=== PATIENT | female | born 1950 | race Caucasian/White ===

== ENCOUNTER 2016-06-26 11:23 | Emergency (ER) | payer MEDICARE, OTHER ==
[~2016-06-26 11:23] MED LIST: ATROVENT INH S2.5 ML INH; COMBIVENT0.074 GM/I INH; ECOTRIN81 MG PO; ELIQUIS 2.5 MG2.5 MG PO; ENSURE ORIGINA237 ML PO; ENSURE113 GM PO; LASIX20 MG PO; LEVAQUIN750 MG PO; LOPRESSOR 25 MG25 MG PO; LORTAB 5-325 M1 EACH PO; LYRICA100 MG PO; NORCO 5-325 TA1 EACH PO; OXYGEN INH; PERCOCET 10-321 EACH PO; PLAVIX75 MG PO; PRILOSEC OTC20 MG PO; PROVENTIL HFA 61 INH INH; SENOKOT-S TABL1 EACH PO; SINGULAIR10 MG PO; SPIRIVA18 MCG INH; SYMBICORT 16010.2 GM INH; VENTOLIN HFA 66.7 GM INH; ZOLOFT50 MG PO
[2016-06-26 12:24] LABS: HEMOGLOBIN 11.6 gm/dl (12.3-15.3); RED BLOOD COUNT 4.17 M/UL (4.00-5.10); WHITE BLOOD COUNT 11.3 K/UL (4.5-11.0)
[2016-06-26 12:46] LABS: BUN/CREATININE RATIO 13 (0-10)
[2016-07-26] MEDS ORDERED: NORCO 10-325 T1 EACH PO (07:34)
[2016-07-26] MEDS ORDERED: PRILOSEC OTC20 MG PO (07:35)
[2016-07-26] MEDS ORDERED: LYRICA100 MG PO (07:35)
[2016-07-26] MEDS ORDERED: PLAVIX 75 MG TA75 MG PO (07:36)
[2016-07-26] MEDS ORDERED: SYMBICORT 160-1 INHA INH (07:36)
[2016-07-26] MEDS ORDERED: VIT B-12 PO (07:37)
[2016-07-26] MEDS ORDERED: VIT D PO (07:37)
[2016-07-26] MEDS ORDERED: SPIRIVA18 MCG INH (07:37)
[2016-07-26] MEDS ORDERED: CALCIUM PO (07:38)
[2016-10-30] MEDS ORDERED: LOPRESSOR 25 MG25 MG PO (22:53)
[2016-10-30] MEDS ORDERED: SERTRALINE HCL100 MG PO (22:54)
[2016-10-30] MEDS ORDERED: SINGULAIR10 MG PO (22:54)
[2016-10-30] MEDS ORDERED: POTASSIUM CHLO10 MEQ PO (22:55)
[2016-10-30] MEDS ORDERED: FUROSEMIDE20 MG PO (22:55)
[2016-11-01] MEDS ORDERED: ENSURE LIQUID237 ML PO (12:44)
[2016-11-01] MEDS ORDERED: LEVAQUIN500 MG PO (12:44)
[2016-11-01] MEDS ORDERED: MYCOSTATIN100000 UTS PO (12:45)
[2016-11-01] MEDS ORDERED: SPIRIVA HANDIH18 MCG INH (12:46)
[2016-11-01] MEDS ORDERED: MEDROL TAB 4 MG4 MG PO (12:46)
== END 2016-06-26 18:15 | disposition home or self-care (01) ==
LOC: ER1 11:23
PROVIDERS: Student in an Organized Health Care Education/Training Program
DX: K57.92 Diverticulitis of intestine, part unspecified, without perforation or abscess without bleeding (principal); Z88.1 Allergy status to other antibiotic agents; Z88.5 Allergy status to narcotic agent
CPT/HCPCS: 36415; 80053; 81001; 82150; 83690; 84484; 85025; 85610; 87086; 96374; 96375; 99284; J0696; J7050; Q9962

== ENCOUNTER → 2016-07-26 | Day surgery (SDC) | payer MEDICARE ==
[~2016-07-26] VITALS: Ht 149.9 cm; Wt 49.9 kg
[~2016-07-26] MED LIST changes: +CALCIUM PO; +ENSURE LIQUID237 ML PO; +FUROSEMIDE20 MG PO; +LEVAQUIN500 MG PO; +MEDROL TAB 4 MG4 MG PO; +MYCOSTATIN100000 UTS PO; +NORCO 10-325 T1 EACH PO; +PLAVIX 75 MG TA75 MG PO; +POTASSIUM CHLO10 MEQ PO; +SERTRALINE HCL100 MG PO; +SPIRIVA HANDIH18 MCG INH; +SYMBICORT 160-1 INHA INH; +VIT B-12 PO; +VIT D PO
== END | disposition home or self-care (01) ==
LOC: OR 06:39
PROVIDERS: Internal Medicine Gastroenterology
PROC: 0DBN8ZZ Excision of Sigmoid Colon, Via Natural or Artificial Opening Endoscopic (ICD-10-PCS; 2016-07-26)
PROC: 0DBK8ZZ Excision of Ascending Colon, Via Natural or Artificial Opening Endoscopic (ICD-10-PCS; 2016-07-26)
PROC: 0DBH8ZZ Excision of Cecum, Via Natural or Artificial Opening Endoscopic (ICD-10-PCS; principal; 2016-07-26 07:30)
DX: Z12.11 Encounter for screening for malignant neoplasm of colon (principal); D12.0 Benign neoplasm of cecum; D12.2 Benign neoplasm of ascending colon; D12.5 Benign neoplasm of sigmoid colon; K57.30 Diverticulosis of large intestine without perforation or abscess without bleeding; K64.0 First degree hemorrhoids; I10 Essential (primary) hypertension; J44.9 Chronic obstructive pulmonary disease, unspecified; K21.9 Gastro-esophageal reflux disease without esophagitis; G89.29 Other chronic pain; M19.90 Unspecified osteoarthritis, unspecified site; F41.9 Anxiety disorder, unspecified; F32.9 Major depressive disorder, single episode, unspecified; F17.290 Nicotine dependence, other tobacco product, uncomplicated; Z83.3 Family history of diabetes mellitus; Z88.2 Allergy status to sulfonamides; Z79.02 Long term (current) use of antithrombotics/antiplatelets; Z79.899 Other long term (current) drug therapy; Z90.49 Acquired absence of other specified parts of digestive tract; Z90.710 Acquired absence of both cervix and uterus; Z98.890 Other specified postprocedural states
CPT/HCPCS: J7030

== ENCOUNTER 2020-05-14 20:43 | Emergency (ER) | payer MEDICARE, SELFPAY ==
[~2020-05-14 20:43] MED LIST changes: +ALPRAZOLAM0.25 MG PO; +ALPRAZOLAM0.5 MG PO; +AMLODIPINE BESY10 MG PO; +AMLODIPINE BESYL5 MG PO; +ASPIRIN EC81 MG PO; +ATORVASTATIN CA40 MG PO; +BROVANA15 MCG/2 M INH; +CLARITIN10 MG PO; +IPRAT-ALBUT 0.5-3 ML INH; +IPRATROPIU0.2 MG/1 M INH; +LEVOFLOXACIN500 MG PO; +MAGIC MOUTHWASH PO; +MEDROL4 MG PO; +METOPROLOL TART25 MG PO; +PREDNISONE 20 M20 MG GT; +PREDNISONE20 MG PO; +PRINIVIL5 MG PO; -SERTRALINE HCL100 MG PO; +ZITHROMAX250 MG PO; +ZOLOFT100 MG PO; +[UNRECOGNIZED DRUG - OTHER] IV
[2020-05-14 22:10] LABS: HEMOGLOBIN 9.7 gm/dl (12.3-15.3); RED BLOOD COUNT 3.48 M/UL (4.00-5.10); WHITE BLOOD COUNT 7.5 K/UL (4.5-11.0)
[2020-05-14 22:27] LABS: BUN/CREATININE RATIO 28 (0-10)
[2020-05-15] MEDS ORDERED: ZITHROMAX250 MG PO (01:47)
[2020-05-15 17:30] LABS: ACINETOBACTER BAUMANNII Not Detected (Negative); CANDIDA ALBICANS Not Detected (Negative); CANDIDA KRUSEI Not Detected (Negative); CANDIDA TROPICALIS Not Detected (Negative); ENTEROCOCCUS Not Detected (Negative); ESCHERICHIA COLI Not Detected (Negative); HAEMOPHILUS INFLUENZAE Not Detected (Negative); KLEBSIELLA OXYTOCA Not Detected (Negative); KLEBSIELLA PNEUMONIAE Not Detected (Negative); KPC-CARBAPENEM-RESISTANCE GENE Not Detected (Negative); PROTEUS Not Detected (Negative); PSEUDOMONAS AERUGINOSA Not Detected (Negative); SERRATIA MARCESANS Not Detected (Negative); STAPHYLOCOCCUS AUREUS Not Detected (Negative); STREP AGALACTIAE (GROUP B) Not Detected (Negative); STREP PYOGENES (GROUP A) Not Detected (Negative); STREPTOCOCCUS Not Detected (Negative); vanA/B (VANCOMYCIN RESIST GENE Not Detected (Negative)
[2020-05-15 18:49] LABS: mecA (METHICILLIN RESIST GENE DETECTED (Negative)
[2020-05-15 18:51] LABS: STAPHYLOCOCCUS DETECTED (Negative)
== END 2020-05-15 02:15 | disposition home or self-care (01) ==
LOC: ER1 20:43
PROVIDERS: Emergency Medicine
DX: J44.0 Chronic obstructive pulmonary disease with (acute) lower respiratory infection (principal); J18.9 Pneumonia, unspecified organism; J44.1 Chronic obstructive pulmonary disease with (acute) exacerbation; I11.9 Hypertensive heart disease without heart failure
CPT/HCPCS: 70450; 71045; 72125; 80053; 81001; 83605; 83690; 84484; 85025; 85610; 85730; 87040; 87077; 87150; 87186; 93005; 94640; 94664; 96374; 99285; J2930

== ENCOUNTER 2020-06-01 22:59 | Inpatient (IN) | payer MEDICARE, OTHER ==
[~2020-06-01] VITALS: Ht 144.8 cm; Wt 36.3 kg
[2020-06-01 23:35] LABS: HEMOGLOBIN 9.2 gm/dl (12.3-15.3); RED BLOOD COUNT 3.3 M/UL (4.00-5.10); WHITE BLOOD COUNT 12.8 K/UL (4.5-11.0)
[2020-06-01 23:54] LABS: BUN/CREATININE RATIO 32 (0-10)
[2020-06-02] MEDS ORDERED: METOPROLOL TART25 MG PO (05:01)
[2020-06-02] MEDS ORDERED: HYDROCHLOROTHIA25 MG PO (05:02)
[2020-06-02] MEDS ORDERED: ZOFRAN4 MG PO (05:02)
[2020-06-03 02:27] LABS: HEMOGLOBIN 8.1 gm/dl (12.3-15.3)
[2020-06-03 02:31] LABS: RED BLOOD COUNT 2.88 M/UL (4.00-5.10); WHITE BLOOD COUNT 5.3 K/UL (4.5-11.0)
[2020-06-03 02:48] LABS: BUN/CREATININE RATIO 49 (0-10)
[2020-06-03] MEDS ORDERED: KLONOPIN0.5 MG PO (13:58)
[2020-06-03] MEDS ORDERED: THERAGRAN M TAB1 EA PO (13:58)
== END 2020-06-03 17:45 | disposition home health service (06) | DRG 189 ==
LOC: ER1 22:59 → CDU 06-02 02:00 → CCU 06-02 02:00 → PROG CARE 06-02 12:48
PROVIDERS: Physician Assistant; ADMIT Internal Medicine Infectious Disease
PROC: 5A09357 Assistance with Respiratory Ventilation, Less than 24 Consecutive Hours, Continuous Positive Airway Pressure (ICD-10-PCS; principal; 2020-06-02)
DX: J96.21 Acute and chronic respiratory failure with hypoxia (principal); J44.1 Chronic obstructive pulmonary disease with (acute) exacerbation; R64 Cachexia; Z68.1 Body mass index [BMI] 19.9 or less, adult; E44.0 Moderate protein-calorie malnutrition; Z20.822 Contact with and (suspected) exposure to COVID-19; Z66 Do not resuscitate; I10 Essential (primary) hypertension; E78.5 Hyperlipidemia, unspecified; M40.209 Unspecified kyphosis, site unspecified; M81.0 Age-related osteoporosis without current pathological fracture; G89.4 Chronic pain syndrome; R00.0 Tachycardia, unspecified; M54.9 Dorsalgia, unspecified; F41.9 Anxiety disorder, unspecified; I73.1 Thromboangiitis obliterans [Buerger's disease]; J96.22 Acute and chronic respiratory failure with hypercapnia; I27.20 Pulmonary hypertension, unspecified; Z89.431 Acquired absence of right foot; Z90.49 Acquired absence of other specified parts of digestive tract; Z90.710 Acquired absence of both cervix and uterus; Z99.81 Dependence on supplemental oxygen; Z86.010 Personal history of colon polyps; Z88.1 Allergy status to other antibiotic agents; Z88.5 Allergy status to narcotic agent; Z88.2 Allergy status to sulfonamides; Z88.8 Allergy status to other drugs, medicaments and biological substances; Z79.899 Other long term (current) drug therapy; Z87.891 Personal history of nicotine dependence; Z83.3 Family history of diabetes mellitus; Z82.49 Family history of ischemic heart disease and other diseases of the circulatory system
CPT/HCPCS: 0240U; 36415; 36600; 71045; 80053; 81001; 82550; 82553; 82803; 83605; 83874; 83880; 84484; 85025; 87040; 87086; 93005; 94640; 94660; 94664; 94760; 96374; 97161; 99285; J1650; J2920; J2930

== ENCOUNTER 2020-07-04 18:56 | Inpatient (IN) | payer MEDICARE, SELFPAY ==
[~2020-07-04] VITALS: Ht 144.8 cm; Wt 36.3 kg
[~2020-07-04 18:56] MED LIST changes: +HYDROCHLOROTHIA25 MG PO; +KLONOPIN0.5 MG PO; +THERAGRAN M TAB1 EA PO; +ZOFRAN4 MG PO
[2020-07-04 20:01] LABS: HEMOGLOBIN 9.5 gm/dl (12.3-15.3); RED BLOOD COUNT 3.46 M/UL (4.00-5.10); WHITE BLOOD COUNT 6.7 K/UL (4.5-11.0)
[2020-07-04 20:23] LABS: BUN/CREATININE RATIO 32 (0-10)
[2020-07-05 06:59] LABS: HEMOGLOBIN 9.6 gm/dl (12.3-15.3); RED BLOOD COUNT 3.41 M/UL (4.00-5.10)
[2020-07-05 07:23] LABS: BUN/CREATININE RATIO 36 (0-10)
[2020-07-06] MEDS ORDERED: DOXYCYCLINE HY100 M2 PO (10:00)
[2020-07-06] MEDS ORDERED: PREDNISONE10 MG PO (10:00)
== END 2020-07-06 14:52 | disposition home or self-care (01) | DRG 189 ==
LOC: ER1 18:56 → CDU 22:10 → PROG CARE 07-05 06:59
PROVIDERS: Physician Assistant; ADMIT Internal Medicine
PROC: 5A09357 Assistance with Respiratory Ventilation, Less than 24 Consecutive Hours, Continuous Positive Airway Pressure (ICD-10-PCS; principal; 2020-07-04)
DX: J96.21 Acute and chronic respiratory failure with hypoxia (principal); E43 Unspecified severe protein-calorie malnutrition; E87.3 Alkalosis; E87.1 Hypo-osmolality and hyponatremia; F11.20 Opioid dependence, uncomplicated; F13.20 Sedative, hypnotic or anxiolytic dependence, uncomplicated; G93.40 Encephalopathy, unspecified; R64 Cachexia; Z68.1 Body mass index [BMI] 19.9 or less, adult; Z20.822 Contact with and (suspected) exposure to COVID-19; Z66 Do not resuscitate; J43.9 Emphysema, unspecified; D64.9 Anemia, unspecified; J96.22 Acute and chronic respiratory failure with hypercapnia; G89.29 Other chronic pain; I11.9 Hypertensive heart disease without heart failure; K57.90 Diverticulosis of intestine, part unspecified, without perforation or abscess without bleeding; I27.21 Secondary pulmonary arterial hypertension; M81.0 Age-related osteoporosis without current pathological fracture; I44.7 Left bundle-branch block, unspecified; F41.1 Generalized anxiety disorder; Z91.14 Patient's other noncompliance with medication regimen; Z89.431 Acquired absence of right foot; Z90.49 Acquired absence of other specified parts of digestive tract; Z90.710 Acquired absence of both cervix and uterus; Z82.49 Family history of ischemic heart disease and other diseases of the circulatory system
CPT/HCPCS: 0240U; 36415; 36600; 71045; 80053; 81001; 82550; 82553; 82803; 83735; 83874; 84100; 84439; 84443; 84484; 85025; 93005; 94640; 94660; 94664; 94760; 96365; 96375; 99285; C9113; G0378; J1650; J1956; J2920; J2930

== ENCOUNTER 2020-09-03 18:41 | Observation (INO) | payer MEDICARE ==
[~2020-09-03] VITALS: Ht 139.7 cm; Wt 46.7 kg
[~2020-09-03 18:41] MED LIST changes: +DOXYCYCLINE HY100 M2 PO; +PREDNISONE10 MG PO
[2020-09-03 19:53] LABS: HEMOGLOBIN 9.6 gm/dl (12.3-15.3); RED BLOOD COUNT 3.53 M/UL (4.00-5.10); WHITE BLOOD COUNT 7.4 K/UL (4.5-11.0)
[2020-09-03 20:19] LABS: BUN/CREATININE RATIO 28 (0-10)
[2020-09-04] MEDS ORDERED: FLONASE 0.05% N16 GM (02:03)
[2020-09-04 08:17] LABS: HEMOGLOBIN 8.9 gm/dl (12.3-15.3); RED BLOOD COUNT 3.22 M/UL (4.00-5.10); WHITE BLOOD COUNT 6.1 K/UL (4.5-11.0)
[2020-09-04 08:42] LABS: BUN/CREATININE RATIO 28 (0-10)
[2020-09-04] MEDS ORDERED: MEDROL DOSEPAK 24 MG PO (12:21)
[2020-09-04] MEDS ORDERED: AZITHROMYCIN250 MG PO (12:21)
== END 2020-09-04 13:18 | disposition home or self-care (01) ==
LOC: ER1 18:41 → PROG CARE 22:40 → CDU 22:40 → PROG CARE 22:40
PROVIDERS: Emergency Medicine; ADMIT Internal Medicine
DX: J44.1 Chronic obstructive pulmonary disease with (acute) exacerbation (principal); R42 Dizziness and giddiness; J96.21 Acute and chronic respiratory failure with hypoxia; J96.22 Acute and chronic respiratory failure with hypercapnia; M81.0 Age-related osteoporosis without current pathological fracture; F41.9 Anxiety disorder, unspecified; I10 Essential (primary) hypertension; I44.7 Left bundle-branch block, unspecified; I27.20 Pulmonary hypertension, unspecified; J96.20 Acute and chronic respiratory failure, unspecified whether with hypoxia or hypercapnia; Z20.822 Contact with and (suspected) exposure to COVID-19; E87.1 Hypo-osmolality and hyponatremia; Z88.2 Allergy status to sulfonamides; Z88.8 Allergy status to other drugs, medicaments and biological substances; Z90.49 Acquired absence of other specified parts of digestive tract; Z88.5 Allergy status to narcotic agent; Z90.710 Acquired absence of both cervix and uterus; Z98.890 Other specified postprocedural states; Z87.891 Personal history of nicotine dependence; W19.XXXA Unspecified fall, initial encounter
CPT/HCPCS: 0240U; 36415; 36600; 70450; 71045; 73522; 73552; 73564; 73590; 73610; 80048; 80053; 82550; 82553; 82803; 83874; 83880; 84484; 85025; 90471; 90715; 93005; 94640; 94660; 94664; 94760; 96374; 99285; G0378; J2920; J2930

== ENCOUNTER 2020-09-25 02:21 | Emergency (ER) | payer MEDICARE ==
[~2020-09-25 02:21] MED LIST changes: +AZITHROMYCIN250 MG PO; +FLONASE 0.05% N16 GM; +MEDROL DOSEPAK 24 MG PO
[2020-09-25 03:50] LABS: HEMOGLOBIN 10.4 gm/dl (12.3-15.3); RED BLOOD COUNT 3.64 M/UL (4.00-5.10); WHITE BLOOD COUNT 7.2 K/UL (4.5-11.0)
[2020-09-25 04:06] LABS: BUN/CREATININE RATIO 25 (0-10)
== END 2020-09-25 06:26 | disposition left against medical advice (07) ==
LOC: ER1 02:21 → CDU 05:26 → ER1 05:26
PROVIDERS: Physician Assistant Medical
DX: J44.1 Chronic obstructive pulmonary disease with (acute) exacerbation (principal); J96.22 Acute and chronic respiratory failure with hypercapnia; I10 Essential (primary) hypertension; Z90.89 Acquired absence of other organs; Z90.710 Acquired absence of both cervix and uterus; Z87.891 Personal history of nicotine dependence; Z79.899 Other long term (current) drug therapy
CPT/HCPCS: 36600; 71045; 80053; 82550; 82553; 82803; 83605; 83874; 83880; 84484; 85025; 85610; 93005; 94660; 94664; 94760; 96374; 99285; J0696

== ENCOUNTER 2021-01-22 09:40 | Emergency (ER) | payer MEDICARE ==
[2021-01-22 11:00] LABS: RED BLOOD COUNT 4.34 M/UL (4.00-5.10); WHITE BLOOD COUNT 13.6 K/UL (4.5-11.0)
[2021-01-22 11:18] LABS: BUN/CREATININE RATIO 27 (0-10)
[2021-01-22] MEDS ORDERED: ZITHROMAX250 MG PO (12:29)
== END 2021-01-22 12:45 | disposition home or self-care (01) ==
LOC: ER1 09:40
PROVIDERS: Emergency Medicine
DX: S32.019A Unspecified fracture of first lumbar vertebra, initial encounter for closed fracture (principal); S22.089A Unspecified fracture of T11-T12 vertebra, initial encounter for closed fracture; J44.1 Chronic obstructive pulmonary disease with (acute) exacerbation; Z20.822 Contact with and (suspected) exposure to COVID-19; X50.9XXA Other and unspecified overexertion or strenuous movements or postures, initial encounter
CPT/HCPCS: 36600; 71045; 72131; 80053; 82550; 82553; 82803; 83874; 83880; 84484; 85025; 87040; 93005; 94664; 96372; 96374; 99284; J1100; J1885; J2405; U0002

== ENCOUNTER 2021-03-13 06:22 | Inpatient (IN) | payer MEDICARE ==
[~2021-03-13] VITALS: Ht 144.8 cm; Wt 39.9 kg
[~2021-03-13 06:22] MED LIST changes: +BIOTIN800 MCG PO; +HYDROCODON-ACE1 EAC6 PO; +IRON325 M1 PO; -NORCO 10-325 T1 EACH PO; +TORADOL 10 MG T10 MG PO; +VITAMIN B COMP1 EAC1 PO; +VITAMIN C500 M4 PO
[2021-03-13 06:44] LABS: RED BLOOD COUNT 3.76 M/UL (4.00-5.10); WHITE BLOOD COUNT 27.4 K/UL (4.5-11.0)
[2021-03-13 07:19] LABS: BUN/CREATININE RATIO 32 (0-10)
[2021-03-13] MEDS ORDERED: FLONASE 0.05% N16 GM (09:18)
[2021-03-13] MEDS ORDERED: ONDANSETRON HCL4 MG PO (09:18)
[2021-03-13] MEDS ORDERED: VITAMIN D3125 MCG PO (09:19)
[2021-03-13] MEDS ORDERED: VITAMIN C500 M4 PO (09:19)
[2021-03-13] MEDS ORDERED: HAIR, SKIN & N1 EACH PO (09:19)
[2021-03-13] MEDS ORDERED: VITAMIN B-121000 MCG PO (09:20)
[2021-03-13] MEDS ORDERED: CALTRATE 600+D1 EAC2 PO (09:20)
== END 2021-03-14 08:54 | disposition expired | DRG 871 ==
LOC: ER1 06:22 → PROG CARE 08:20 → CDU 08:20 → PROG CARE 10:27
PROVIDERS: Emergency Medicine; ADMIT Internal Medicine
PROC: 5A09357 Assistance with Respiratory Ventilation, Less than 24 Consecutive Hours, Continuous Positive Airway Pressure (ICD-10-PCS; principal; 2021-03-13)
DX: A41.9 Sepsis, unspecified organism (principal); J96.21 Acute and chronic respiratory failure with hypoxia; J96.22 Acute and chronic respiratory failure with hypercapnia; Z20.822 Contact with and (suspected) exposure to COVID-19; J18.9 Pneumonia, unspecified organism; J44.0 Chronic obstructive pulmonary disease with (acute) lower respiratory infection; E87.1 Hypo-osmolality and hyponatremia; J44.1 Chronic obstructive pulmonary disease with (acute) exacerbation; Z99.81 Dependence on supplemental oxygen; G89.4 Chronic pain syndrome; Z87.891 Personal history of nicotine dependence; Z66 Do not resuscitate; Z51.5 Encounter for palliative care; M81.0 Age-related osteoporosis without current pathological fracture; F41.9 Anxiety disorder, unspecified; K57.90 Diverticulosis of intestine, part unspecified, without perforation or abscess without bleeding; I44.7 Left bundle-branch block, unspecified; I10 Essential (primary) hypertension; D47.3 Essential (hemorrhagic) thrombocythemia; I73.1 Thromboangiitis obliterans [Buerger's disease]; R74.01 Elevation of levels of liver transaminase levels; D63.8 Anemia in other chronic diseases classified elsewhere; Z90.49 Acquired absence of other specified parts of digestive tract; Z90.710 Acquired absence of both cervix and uterus; Z90.89 Acquired absence of other organs; Z89.431 Acquired absence of right foot; Z88.5 Allergy status to narcotic agent; Z88.8 Allergy status to other drugs, medicaments and biological substances; Z88.2 Allergy status to sulfonamides; Z88.6 Allergy status to analgesic agent; Z82.49 Family history of ischemic heart disease and other diseases of the circulatory system; Z98.890 Other specified postprocedural states; Z83.3 Family history of diabetes mellitus
CPT/HCPCS: 36600; 71045; 80053; 82803; 83036; 83605; 83735; 83880; 84100; 85025; 87040; 93005; 94640; 94660; 94664; 94760; 96365; 99284; J1170; J1956; J2060; J2920; J3370; J7030; J7070; U0002